=== PATIENT | male | born 1985 | race African-American/Black ===

== ENCOUNTER 2017-02-23 11:55 | Emergency (ER) | payer OTHER ==
[~2017-02-23] VITALS: Ht 188 cm; Wt 70.2 kg
[2017-02-23 12:30] VITALS: BP 127/75
[2017-02-23] MEDS ORDERED: ACETAMINOPHEN 325MG TABLET PO ONE (13:15)
== END 2017-02-23 15:00 | disposition home or self-care (01) ==
LOC: ER 13:42
DX: R07.81 Pleurodynia (principal); F17.210 Nicotine dependence, cigarettes, uncomplicated; Z91.81 History of falling
CPT/HCPCS: 71101; 99284

== ENCOUNTER 2024-05-02 16:10 | Emergency (ER) | payer MEDICAID, OTHER ==
[~2024-05-02] VITALS: Ht 188 cm; Wt 75.0 kg
[2024-05-02 16:18] VITALS: BP 143/76; TEMP 97.6; O2SAT 98
[2024-05-02 16:19] VITALS: PULSE 91
[2024-05-02] MEDS: LIDOCAINE HCL/PF 1% 10 MG/ML 5ML VIAL INFIL ONE (17:00)
[2024-05-02] MEDS: TETANUS, DIPHTHERIA, PERTUSSIS VAC/PF 0.5ML (>10YR OLD) IM ONE (17:00)
[2024-05-02] MEDS: BACITRACIN ZINC OINT UDPKT TOP ONE (17:00)
[2024-05-02 18:00] VITALS: RESP 17
== END 2024-05-02 21:15 | disposition home or self-care (01) ==
LOC: ER 16:10
DX: S51.812A Laceration without foreign body of left forearm, initial encounter (principal); X58.XXXA Exposure to other specified factors, initial encounter; Y93.89 Activity, other specified; Y92.89 Other specified places as the place of occurrence of the external cause; Y99.8 Other external cause status
CPT/HCPCS: 99283; 90715; 12002; 90471; J3490; 99282

== ENCOUNTER 2024-07-15 08:40 | Emergency (ER) | payer MEDICAID ==
[~2024-07-15] VITALS: Ht 193 cm; Wt 87.0 kg
[2024-07-15 08:44] VITALS: BP 134/87; PULSE 91; RESP 18; O2SAT 98
[2024-07-15 10:30] VITALS: TEMP 98.3
[2024-07-15] MEDS: BACITRACIN ZINC OINT UDPKT TOP ONE ×2 (10:30)
[2024-07-15] MEDS: ACETAMINOPHEN 325MG TABLET PO ONE (10:30)
[2024-07-15] MEDS: TETANUS, DIPHTHERIA, PERTUSSIS VAC/PF 0.5ML (>10YR OLD) IM ONE (10:30)
[2024-07-15] MEDS: LIDOCAINE HCL/PF 1% 10 MG/ML 5ML VIAL INFIL ONE (10:30)
[2024-07-15] MEDS ORDERED: CEPH500C2 MT (11:42)
== END 2024-07-15 12:21 | disposition home or self-care (01) ==
LOC: ER 08:40
DX: S61.210A Laceration without foreign body of right index finger without damage to nail, initial encounter (principal); W26.9XXA Contact with unspecified sharp object(s), initial encounter; Y93.89 Activity, other specified; Y92.89 Other specified places as the place of occurrence of the external cause; Y99.8 Other external cause status
CPT/HCPCS: 90715; 12002; 90471; 99283; J3490; Z7610 ×2